=== PATIENT | female | born 1930 | race Caucasian/White ===

== ENCOUNTER 2017-05-01 12:39 | Day surgery (SDC) | payer MEDICARE, MEDICAID ==
[~2017-05-01] VITALS: Ht 170.2 cm; Wt 65.0 kg
[~2017-05-01 12:39] MED LIST: ATE25T PO; GLE400T PO; LANS30CA37 PO
[2017-05-01] MEDS ORDERED: MIDAZolam 1mg/ml 10ml vial ONE (12:41)
[2017-05-01] MEDS ORDERED: fentaNYL/PF 50MCG/1 ML 2ML syringe ONE (12:41)
[2017-05-01] MEDS ORDERED: LIDOcaine Viscous 15ml cup ONE (12:41)
[2017-05-01 12:53] VITALS: BP 169/89
[2017-05-01 13:26] VITALS: BP 98/70
[2017-05-01 13:36] VITALS: BP 105/63
[2017-05-01 13:46] VITALS: BP 126/56
[2017-05-01 13:56] VITALS: BP 121/63
== END 2017-05-01 14:06 | disposition home or self-care (01) ==
LOC: GI LAB 12:39
PROVIDERS: ATTEND Internal Medicine Gastroenterology
DX: R10.13 Epigastric pain (principal); Z86.19 Personal history of other infectious and parasitic diseases
CPT/HCPCS: 43239; J2250; J3010; J7030; 88305; A4620; G0500